=== PATIENT | female | born 1975 | race Hispanic/Latino ===

== ENCOUNTER 2016-07-23 15:08 | Emergency (ER) | payer SELFPAY ==
[~2016-07-23] VITALS: Ht 157.5 cm; Wt 55.0 kg
[2016-07-23 16:20] LABS: HEMATOCRIT 34.6 % (36.0-46.0); MCH 29.3 PG (29.0-34.0); MCHC 33.2 G/DL (30.0-36.0); PLATELET COUNT 214 K/uL (156-360); RBC DIS.WIDTH-CV 13.5 % (11.8-14.6); RBC DIS.WIDTH-SD 43.8 % (39-53); RED BLOOD COUNT 3.93 M/uL (3.80-5.20); WHITE BLOOD COUNT 9.1 K/uL (4.1-10.2)
[2016-07-23 16:30] LABS: CHLORIDE 109 mEq/L (99-109); SODIUM 137 mEq/L (136-147)
[2016-07-23 16:32] LABS: GLUCOSE 96 mg/dL (70-99)
[2016-07-23 16:33] LABS: ANION GAP 11 MEQ/L (2-14)
[2016-07-23 16:36] LABS: GFR ESTIMATE (CALCULATED) > 59 mL/min/
[2016-07-23 16:37] LABS: UREA NITROGEN (BUN) 18 mg/dL (9-23)
[2016-07-23] MEDS ORDERED: PERCOCET 5/31 TABLET PO (16:53)
[2016-07-23 17:06] VITALS: BP 148/88
== END 2016-07-23 17:08 | disposition home or self-care (01) ==
LOC: EME 15:08
PROVIDERS: Nurse Practitioner Family
DX: M32.9 Systemic lupus erythematosus, unspecified (principal); M79.645 Pain in left finger(s)
CPT/HCPCS: 73130; 80048; 85027; 99281; 99283